=== PATIENT | female | born 1990 | race Caucasian/White ===

== ENCOUNTER 2019-12-27 08:10 | Emergency (ER) | payer OTHER ==
[2019-12-27 08:15] VITALS: BP 134/72; PULSE 107; RESP 18; TEMP 99.4
--- NOTE | 2019-12-27 08:48 | ED ---
General Adult HPI - General Chief complaint: Skin/Abscess/Foreign Body Stated complaint: Facial Swelling Time Seen by Provider: 12/27/19 08:20 Source: patient, RN notes reviewed, old records reviewed Mode of arrival: ambulatory Limitations: no limitations - History of Present Illness Initial comments: 29-year-old female presenting for left-sided facial swelling which is been present for the past 24 hours. She had taken Motrin and Benadryl with approximately 50% reduction in swelling. She has poor dentition but denies any tooth pain. She has had a low-grade fever as well. She does report some mild pain in the left cheek. No pain with chewing. No difficulty swallowing. No cough or dyspnea. No abdominal pain nausea vomiting. - Related Data Previous Rx's Medication Instructions Recorded Amoxic-Pot Clav 875-125Mg 1 tab PO Q12HR 10 Days #20 tab 12/27/19 [Augmentin 875-125] Allergies Allergy/AdvReac Type Severity Reaction Status Date / Time No Known Allergies Allergy Verified 12/27/19 08:15 Review of Systems ROS Statement: Those systems with pertinent positive or pertinent negative responses have been documented in the HPI. ROS Other: All systems not noted in ROS Statement are negative. Past Medical History Past Medical History: No Reported History Additional Past Medical History / Comment(s): 3 vaginal deliveries. no complications History of Any Multi-Drug Resistant Organisms: None Reported Past Surgical History: No Surgical Hx Reported Past Anesthesia/Blood Transfusion Reactions: No Reported Reaction Past Psychological History: ADD/ADHD, Depression Smoking Status: Current every day smoker Past Alcohol Use History: Occasional Past Drug Use History: None Reported - Past Family History Father Family Medical History: Diabetes Mellitus, Hypertension General Exam Limitations: no limitations General appearance: alert, in no apparent distress Head exam: Present: atraumatic, normocephalic Eye exam: Present: normal appearance, PERRL ENT exam: Present: mucous membranes moist, other (Dentition throughout, fractured left lower molar multiple dental caries. No tenderness to percussion. No drainable abscess. Patient has swelling and mild tenderness of the soft tissue of the left cheek.) Neck exam: Present: normal inspection. Absent: tenderness, meningismus Respiratory exam: Present: normal lung sounds bilaterally. Absent: respiratory distress, wheezes Cardiovascular Exam: Present: regular rate, normal rhythm GI/Abdominal exam: Present: soft. Absent: distended, tenderness Course Vital Signs 12/27/19 08:13 Temperature 99.4 F Pulse Rate 107 H Respiratory 18 Rate Blood Pressure 134/72 O2 Sat by Pulse 100 Oximetry Medical Decision Making - Medical Decision Making 29-year-old female with left-sided facial swelling, suspect dental abscess as the cause of this inflammation. Patient prescribed Augmentin. She will continue Motrin for inflammation and pain. She will follow-up with her dentist. Disposition Clinical Impression: Dental abscess, Facial swelling Disposition: HOME SELF-CARE Condition: Good Instructions (If sedation given, give patient instructions): Dental Abscess (ED) Additional Instructions: Please follow up with your dentist. please return with worsening or changing symptoms. Prescriptions: Amoxic-Pot Clav 875-125Mg [Augmentin 875-125] 1 tab PO Q12HR 10 Days #20 tab Is patient prescribed a controlled substance at d/c from ED?: No Referrals: None,Stated [Primary Care Provider] - 1-2 days Tad Majano [STAFF PHYSICIAN] - 1-2 days Time of Disposition: 08:46
== END 2019-12-27 09:00 | disposition home or self-care (01) ==
LOC: EC 08:10
DX: K04.7 Periapical abscess without sinus (principal); R22.0 Localized swelling, mass and lump, head; K02.9 Dental caries, unspecified; S02.5XXA Fracture of tooth (traumatic), initial encounter for closed fracture; F17.200 Nicotine dependence, unspecified, uncomplicated; X58.XXXA Exposure to other specified factors, initial encounter
CPT/HCPCS: 81025; 99284

== ENCOUNTER 2022-01-03 21:47 | Emergency (ER) | payer OTHER ==
[2022-01-03 21:58] VITALS: RESP 16; TEMP 98.5
--- NOTE | 2022-01-03 22:27 | XR ---
EXAMINATION TYPE: XR foot limited RT DATE OF EXAM: 01/03/2022 COMPARISON: NONE HISTORY: Foot pain TECHNIQUE: 3 view FINDINGS: Metatarsals appear intact. I see no fracture or dislocation. There are no erosions. Hindfoo t appears intact. Joint spaces are fairly normal. IMPRESSION: Negative right foot exam.
--- NOTE | 2022-01-03 22:33 | XR ---
EXAMINATION TYPE: XR ankle complete RT DATE OF EXAM: 01/03/2022 COMPARISON: NONE HISTORY: Pain TECHNIQUE: 3 views FINDINGS: There is soft tissue swelling over the lateral malleolus. Ankle mortise is anatomic. IMPRESSION: Lateral soft tissue swelling. No fracture seen.
--- NOTE | 2022-01-03 23:11 | ED ---
General Adult HPI - General Chief complaint: Extremity Injury, Lower Stated complaint: RIGHT ANKLE PAIN Source: patient Mode of arrival: wheelchair Limitations: no limitations - History of Present Illness Initial comments: 31-year-old female presents emergency department for right ankle pain. States that she twisted her right ankle stepping down a concrete step from a deck. S uffered an inversion injury and landed on top of a rock. Patient has been unable to weight-bear. Denies any numbness or tingling in her toes. No knee pain. Denies since taking medications at home prior to coming into the emergency room. No other alleviating, precipitating mopping factors - Related Data Previous Rx's Medication Instructions Recorded Amoxic-Pot Clav 875-125Mg 1 tab PO Q12HR 10 Days #20 tab 12/27/19 [Augmentin 875-125] Allergies Allergy/AdvReac Type Severity Reaction Status Date / Time No Known Allergies Allergy Verified 01/03/22 21:58 Review of Systems ROS Statement: Those systems with pertinent positive or pertinent negative responses have been documented in the HPI. ROS Other: All systems not noted in ROS Statement are negative. Past Medical History Past Medical History: No Reported History Additional Past Medical History / Comment(s): 3 vaginal deliveries. no complications History of Any Multi-Drug Resistant Organisms: None Reported Past Surgical History: No Surgical Hx Reported Past Anesthesia/Blood Transfusion Reactions: No Reported Reaction Past Psychological History: ADD/ADHD, Depression Smoking Status: Vaper Past Alcohol Use History: None Reported Past Drug Use History: None Reported - Past Family History Father Family Medical History: Diabetes Mellitus, Hypertension General Exam Limitations: no limitations General appearance: alert, in no apparent distress Head exam: Present: atraumatic, normocephalic, normal inspection Extremities exam: Present: tenderness (right lateral ankle. associated swelling. intact ROM. 2+ DP and PT pulses) Skin exam: Present: warm, dry, intact, normal color. Absent: rash Course Vital Signs 01/03/22 01/03/22 21:56 23:15 Temperature 98.5 F Pulse Rate 113 H 84 Respiratory 16 16 Rate Blood Pressure 130/76 139/82 O2 Sat by Pulse 100 98 Oximetry Medical Decision Making - Medical Decision Making Upon arrival patient was placed into room 32. Thorough history and physical exam was performed. X-rays of the patient's right ankle and foot are performed which demonstrates no fracture. She is placed in an Aircast and given a set of crutches. Patient to rest, ice and elevate. Follow-up with her doctor in 7-10 days and have repeat imaging if pain persists. Patient understood and was discharged home in stable condition Disposition Clinical Impression: Right ankle pain Disposition: HOME SELF-CARE Condition: Stable Instructions (If sedation given, give patient instructions): Ankle Sprain (ED) Additional Instructions: Rest, ice and elevate your extremity. Wear the aircast. Ambulate as tolerated. Repeat xrays in 7-10 days if your pain persists. Return to ED for any new or worsening symptoms. Is patient prescribed a controlled substance at d/c from ED?: No Referrals: Jaycee Huang MD [Primary Care Provider] - 1-2 days Time of Disposition: 23:10
[2022-01-03 23:22] VITALS: BP 139/82; PULSE 84
== END 2022-01-03 23:31 | disposition home or self-care (01) ==
LOC: EC 21:47
DX: M25.571 Pain in right ankle and joints of right foot (principal); F17.209 Nicotine dependence, unspecified, with unspecified nicotine-induced disorders; X50.1XXA Overexertion from prolonged static or awkward postures, initial encounter
CPT/HCPCS: 99283

== ENCOUNTER 2022-01-13 14:07 | Emergency (ER) | payer OTHER ==
[2022-01-13 14:17] VITALS: RESP 20; TEMP 97.5
--- NOTE | 2022-01-13 15:34 | ED ---
Lower Extremity Injury HPI - General Chief Complaint: Extremity Injury, Lower Stated Complaint: RT ANKLE PAIN Time Seen by Provider: 01/13/22 14:56 Source: patient Mode of arrival: ambulatory Limitations: no limitations - History of Present Illness Initial Comments: Patient is a 31-year-old female presenting with chief complaint of right ankle pain. Patient was seen here on 01/03 after an injury, was found to have no fracture, and was instructed to follow-up with orthopedics. Patient states that she has had difficulty getting in with an orthopedist. Patient was seen in urgent care this week and had repeat x-rays performed, this confirmed that there is no fracture. Patient is concerned due to increased pain, swelling, bruising of the ankle. She denies any numbness, tingling, weakness, discoloration, pallor, cold extremity. - Related Data Previous Rx's Medication Instructions Recorded Amoxic-Pot Clav 875-125Mg 1 tab PO Q12HR 10 Days #20 tab 12/27/19 [Augmentin 875-125] Allergies Allergy/AdvReac Type Severity Reaction Status Date / Time No Known Allergies Allergy Verified 01/13/22 14:17 Review of Systems ROS Statement: Those systems with pertinent positive or pertinent negative responses have been documented in the HPI. ROS Other: All systems not noted in ROS Statement are negative. Past Medical History Past Medical History: No Reported History Additional Past Medical History / Comment(s): 3 vaginal deliveries. no complications History of Any Multi-Drug Resistant Organisms: None Reported Past Surgical History: No Surgical Hx Reported Past Anesthesia/Blood Transfusion Reactions: No Reported Reaction Past Psychological History: ADD/ADHD, Depression Smoking Status: Vaper Past Alcohol Use History: None Reported Past Drug Use History: None Reported - Past Family History Father Family Medical History: Diabetes Mellitus, Hypertension General Exam Limitations: no limitations General appearance: alert, in no apparent distress Head exam: Present: atraumatic, normocephalic, normal inspection Eye exam: Present: normal appearance, EOMI. Absent: scleral icterus, periorbital swelling Right Ankle exam: Present: tenderness, swelling, ecchymosis. Absent: full ROM, crepitus Foot/Toe exam: Present: full ROM, tenderness, swelling, ecchymosis Neurological exam: Present: alert, oriented X3, CN II-XII intact Psychiatric exam: Present: normal affect, normal mood Skin exam: Present: warm, dry, intact, normal color. Absent: rash Course Vital Signs 01/13/22 01/13/22 14:13 16:13 Temperature 97.5 F L Pulse Rate 108 H 84 Respiratory 20 20 Rate Blood Pressure 134/80 132/70 O2 Sat by Pulse 99 99 Oximetry Medical Decision Making - Medical Decision Making Patient is a 31-year-old female presenting for evaluation of continued right ankle swelling, pain, bruising. Patient was seen here on 01/03 and found to have no fracture and instructed to follow up with orthopedics. Patient was seen in urgent care this week and had repeat x-rays performed confirming there is no fracture. Patient states she's had difficulty getting in with orthopedics. He is using her brace, and taking Motrin and Tylenol, resting, icing, elevating. On examination there is tenderness to palpation along the lateral portion of the foot and ankle. There is notable swelling and bruising. Patient has been using crutches and ankle stirrup brace. I placed the patient in an ankle stirrup splint, and instructed her to follow up with orthopedics. I educated her on supportive treatment. Report back to ER if any new or worsening symptoms. Discussed return parameters answered all questions. Patient conveyed verbal understanding and agreed to the plan. My attending is Dr. Chew Disposition Clinical Impression: Ankle sprain Disposition: HOME SELF-CARE Condition: Good Instructions (If sedation given, give patient instructions): Ankle Sprain (ED) Additional Instructions: Follow up with orthopedics. Report back to ER if any new or worsening symptoms. Take Motrin and Tylenol as needed for pain control. Rest, ice, compress, elevate above the level of the heart for symptomatic management. Is patient prescribed a controlled substance at d/c from ED?: No Referrals: Jaycee Huang MD [Primary Care Provider] - 1-2 days Jerardo Geronimo PAC [PHYSICIAN CAREER DEVELOPMENT COORDINATOR] - 1-2 days Time of Disposition: 15:33
[2022-01-13 16:14] VITALS: BP 132/70; PULSE 84
== END 2022-01-13 16:14 | disposition home or self-care (01) ==
LOC: EC 14:07
DX: S93.401A Sprain of unspecified ligament of right ankle, initial encounter (principal); F17.290 Nicotine dependence, other tobacco product, uncomplicated; X58.XXXA Exposure to other specified factors, initial encounter
CPT/HCPCS: 99283

== ENCOUNTER → 2022-02-09 | Outpatient (CLI) | payer OTHER ==
--- NOTE | 2022-02-10 04:55 | MR ---
EXAMINATION TYPE: MR ankle RT wo con DATE OF EXAM: 02/09/2022 COMPARISON: None HISTORY: Right foot and ankle pain due to rolling ankle 1 month ago. Multiplanar multiecho imaging of the right ankle performed with no contrast. There is intact Achilles tendon. Calcaneus is intact. The medial and lateral flexor tendons of the an kle are intact. Ankle mortise is anatomic. There is increased signal in the medial malleolus and the medial aspect of the talus on the T2 images and consistent with bone bruise. No fracture line seen. T here is mild subcutaneous edema on the dorsum of the foot. There is small ankle joint effusion. IMPRESSION: There is evidence of bone bruise involving the medial talus and the medial malleolus of the ankle. Sm all ankle joint effusion. No fracture seen. No evidence of tendon or ligament tear.
--- NOTE | 2022-02-10 05:03 | MR ---
EXAMINATION TYPE: MR foot RT wo con DATE OF EXAM: 02/09/2022 COMPARISON: None HISTORY: Right foot and ankle pain due to rolling ankle 1 month ago. Multiplanar multiecho imaging of the right foot without contrast. There is subcutaneous edema on the dorsum of the foot and anterior ankle. There is some mild edema in the soft tissues in the plantar aspect of the foot. The Achilles tendon is intact. Medial and latera l flexor tendons are intact. There are some diffuse edema in the medial talus and medial malleolus of the ankle. No fracture seen. Joint spaces of the foot are fairly well maintained. No subluxation. IMPRESSION: Subcutaneous edema. Mild edema in the soft tissues on the plantar aspect of the forefoot. There is ev idence of bone bruise involving the medial malleolus of the ankle and the medial talus.
== END | disposition home or self-care (01) ==
LOC: RADMRIMAIN 07:39
PROVIDERS: ATTEND Student in an Organized Health Care Education/Training Program
DX: S90.01XA Contusion of right ankle, initial encounter (principal); M25.471 Effusion, right ankle; X58.XXXA Exposure to other specified factors, initial encounter

== ENCOUNTER → 2023-09-27 | Outpatient (CLI) | payer OTHER ==
--- NOTE | 2023-09-27 12:20 | US ---
EXAMINATION TYPE: US transvaginal DATE OF EXAM: 09/27/2023 COMPARISON: NONE CLINICAL INDICATION: Female, 33 years old with history of N91.2 AMENORRHEA; Amenorrhea TECHNIQUE: Transvaginal (TV). Date of LMP: 07/27/23 EXAM MEASUREMENTS: Uterus: 8.8 x 4.8 x 6.7 cm Endometrial Stripe: 0.9 cm Right Ovary: 4.2 x 3.6 x 2.1 cm Left Ovary: 4.1 x 2.2 x 2.1 cm 1. Uterus: Anteverted wnl 2. Endometrium: wnl 3. Right Ovary: dominant follicle = 1.9cm 4. Left Ovary: follicles noted 5. Bilateral Adnexa: prominent vascularity 6. Posterior cul-de-sac: small amount of fluid IMPRESSION: Bilateral ovarian follicles. Small amount of free fluid.
== END | disposition home or self-care (01) ==
LOC: RADUSWWP 08:07
PROVIDERS: ATTEND Family Medicine
DX: N83.02 Follicular cyst of left ovary (principal); N83.01 Follicular cyst of right ovary; N91.2 Amenorrhea, unspecified
CPT/HCPCS: 76830

== ENCOUNTER → 2024-01-09 | Outpatient (CLI) | payer OTHER ==
--- NOTE | 2024-01-09 18:17 | US ---
EXAMINATION TYPE: US thyroid st tissue head/neck DATE OF EXAM: 01/09/2024 COMPARISON: NONE CLINICAL INDICATION: Female, 33 years old with history of E05.90 THYROTOXICOSIS, UNSP WITHOUT THYROTO XIC CRI; GLAND SIZE: Right Lobe: 5.2 x 1.4 x1.9 cm Overall Parenchyma: homogeneous Left Lobe: 4.9 x 1.6 x 1.6 cm Overall Parenchyma: homogeneous Isthmus Thickness: 0.23 cm NODULES RIGHT: # of nodules measured on right: 0 LEFT: # of nodules measured on left: 0 ISTHMUS: # of nodules measured in the isthmus: 0 IMPRESSION: Unremarkable thyroid gland without discrete nodule.
== END | disposition home or self-care (01) ==
LOC: RADUSWWP 15:13
PROVIDERS: ATTEND Family Medicine
DX: E05.90 Thyrotoxicosis, unspecified without thyrotoxic crisis or storm (principal)
CPT/HCPCS: 76536

== ENCOUNTER 2024-09-19 09:31 | Emergency (ER) | payer OTHER ==
[2024-09-19 09:37] VITALS: BP 135/65; PULSE 90; RESP 17; TEMP 98.4
--- NOTE | 2024-09-19 09:44 | ED ---
Headache HPI - General Chief Complaint: Headache Stated Complaint: Migraine Time Seen by Provider: 09/19/24 09:41 Source: patient, RN notes reviewed Mode of arrival: ambulatory Limitations: no limitations - History of Present Illness Initial Comments: This is a 34-year-old female with no reported medical conditions presenting to the emergency department via EMS for complaint of a headache. Patient states that symptoms started yesterday evening at 1500 where she took Motrin with minimal relief in symptoms. Patient endorses associated dizziness described as a room spinning sensation in addition to intermittent black vision in bilateral eyes and associated nausea. She denies neck stiffness, cough, congestion, rhinorrhea, fevers, chills, abdominal pain. Denies history of migraine headaches. States that she took a 500 mg Tylenol today with minimal relief in symptoms. - Related Data Home Medications Medication Instructions Recorded Confirmed Beef Organs(Unknown Dose) 1 tab PO DAILY 09/19/24 09/19/24 Magnesium(Unknown Dose) 1 tab PO DAILY 09/19/24 09/19/24 Vitamin C W/Zinc(Unknown Dose) 1 tab PO DAILY 09/19/24 09/19/24 Vitamin D3/Vitamin K2 (Mk4) 1 tab PO DAILY 09/19/24 09/19/24 [Vitamin K2 Plus D3 Tablet] Previous Rx's Medication Instructions Recorded Ketorolac [Toradol] 10 mg PO Q8HR #15 tab 09/19/24 Allergies Allergy/AdvReac Type Severity Reaction Status Date / Time No Known Allergies Allergy Verified 09/19/24 10:16 Review of Systems ROS Statement: Those systems with pertinent positive or pertinent negative responses have been documented in the HPI. ROS Other: All systems not noted in ROS Statement are negative. Past Medical History Past Medical History: No Reported History Additional Past Medical History / Comment(s): 3 vaginal deliveries. no complications History of Any Multi-Drug Resistant Organisms: None Reported Past Surgical History: No Surgical Hx Reported Past Anesthesia/Blood Transfusion Reactions: No Reported Reaction Past Psychological History: ADD/ADHD, Depression Smoking Status: Vaper Past Alcohol Use History: None Reported Past Drug Use History: None Reported - Past Family History Father Family Medical History: Diabetes Mellitus, Hypertension General Exam Limitations: no limitations General appearance: alert, in no apparent distress Eye exam: Present: normal appearance, PERRL, EOMI. Absent: scleral icterus, conjunctival injection, periorbital swelling Neck exam: Present: normal inspection. Absent: tenderness, meningismus, lymphadenopathy Respiratory exam: Present: normal lung sounds bilaterally. Absent: respiratory distress, wheezes, rales, rhonchi, stridor Cardiovascular Exam: Present: regular rate, normal rhythm, normal heart sounds. Absent: systolic murmur, diastolic murmur, rubs, gallop, clicks GI/Abdominal exam: Present: soft, normal bowel sounds. Absent: distended, tenderness, guarding, rebound, rigid Extremities exam: Present: normal inspection, full ROM, normal capillary refill. Absent: tenderness, pedal edema, joint swelling, calf tenderness Neurological exam: Present: alert, oriented X3, CN II-XII intact Course Vital Signs 09/19/24 09:32 Temperature 98.4 F Pulse Rate 90 Respiratory 17 Rate Blood Pressure 135/65 O2 Sat by Pulse 98 Oximetry Medical Decision Making - Medical Decision Making Was pt. sent in by a medical professional or institution (, PA, BULLET SLUG CASTING MACHINE OPERATOR, urgent care, hospital, or correction...) When possible be specific @ -No Did you speak to anyone other than the patient for history (EMS, parent, family, police, friend...)? What history was obtained from this source @ -No Did you review nursing and triage notes (agree or disagree)? Why? @ -I reviewed and agree with nursing and triage notes Were old charts reviewed (outside hosp., previous admission, EMS record, old EKG, old radiological studies, urgent care reports/EKG's, correction records)? Report findings @ -No old charts were reviewed Differential Diagnosis (chest pain, altered mental status, abdominal pain women, abdominal pain men, vaginal bleeding, weakness, fever, dyspnea, syncope, headache, dizziness, GI bleed, back pain, seizure, CVA, palpatations, mental health, musculoskeletal)? @ -Differential Headache: Migraine, tension, cluster, carbon monoxide, central venous thrombosis, pension karma temporal arteritis, acute closure glaucoma, intercranial hemorrhage, mastoiditis, sinusitis, head injury, this is not meant to be an all-inclusive list. EKG interpreted by me (3pts min.). @ -None X-rays interpreted by me (1pt min.). @ -None done CT interpreted by me (1pt min.). @ -CT imaging of the brain without contrast no acute acute process. U/S interpreted by me (1pt. min.). @ -None done What testing was considered but not performed or refused? (CT, X-rays, U/S, labs)? Why? @ -None What meds were considered but not given or refused? Why? @ -None Did you discuss the management of the patient with other professionals (janet pederson i.e. , PA, BULLET SLUG CASTING MACHINE OPERATOR, lab, RT, psych nurse, psychotherapist social worker, juvenile corrections officer, teacher, forest fire management officer, patient case manager)? Give summary @ -No Was smoking cessation discussed for >3mins.? @ -No Was critical care preformed (if so, how long)? @ -No Were there social determinants of health that impacted care today? How? (Homelessness, low income, unemployed, alcoholism, drug addiction, transportation, low edu. Level, literacy, decrease access to med. care, residential, rehab)? @ -No Was there de-escalation of care discussed even if they declined (Discuss DNR or withdrawal of care, Hospice)? DNR status @ -No What co-morbidities impacted this encounter? (DM, HTN, Smoking, COPD, CAD, Cancer, CVA, ARF, Chemo, Hep., AIDS, mental health diagnosis, sleep apnea, morbid obesity)? @ -None Was patient admitted / discharged? Hospital course, mention meds given and route, prescriptions, significant lab abnormalities, going to OR and other pertinent info. @ -Discharge. 34-year-old female presenting with headache via EMS. Overall patient is well-appearing. Vitals are stable. Neurological examination with no acute deficits. She is provided with migraine cocktail including fluids, Benadryl, Toradol and Reglan. On reevaluation patient states that symptoms have completely resolved. Laboratory testing is unremarkable. Viral testing is negative. Urinalysis no signs of infection, hCG undetected. Case discussed with Dr. Woodruff Undiagnosed new problem with uncertain prognosis? @ -No Drug Therapy requiring intensive monitoring for toxicity (Heparin, Nitro, Insulin, Cardizem)? @ -No Were any procedures done? @ -No Diagnosis/symptom? @ -Headache Acute, or Chronic, or Acute on Chronic? @ -Acute Uncomplicated (without systemic symptoms) or Complicated (systemic symptoms)? @ -Uncomplicated Side effects of treatment? @ -No Exacerbation, Progression, or Severe Exacerbation? @ -No Poses a threat to life or bodily function? How? (Chest pain, [place], [place], pneumonia, PE, COPD, DKA, ARF, appy, cholecystitis, CVA, Diverticulitis, Homicidal, Suicidal, threat to staff... and all critical care pts) @ -No - Lab Data Result diagrams: 09/19/24 09:55 09/19/24 09:55 Lab Results 09/19/24 09/19/24 09/19/24 Range/Units 09:55 09:55 09:55 WBC 6.6 (3.8-10.6) k/uL RBC 4.28 (3.80-5.40) m/uL Hgb 14.0 (11.4-16.0) gm/dL Hct 40.5 (34.0-46.0) % MCV 94.8 (80.0-100.0) fL MCH 32.8 (25.0-35.0) pg MCHC 34.6 (31.0-37.0) g/dL RDW 12.0 (11.5-15.5) % Plt Count 209 (150-450) k/uL MPV 8.1 Neutrophils % 65 % Lymphocytes % 29 % Monocytes % 4 % Eosinophils % 1 % Basophils % 1 % Neutrophils # 4.2 (1.3-7.7) k/uL Lymphocytes # 1.9 (1.0-4.8) k/uL Monocytes # 0.3 (0-1.0) k/uL Eosinophils # 0.1 (0-0.7) k/uL Basophils # 0.0 (0-0.2) k/uL Sodium 138 (137-145) mmol/L Potassium 4.2 (3.5-5.1) mmol/L Chloride 106 (98-107) mmol/L Carbon Dioxide 25 (22-30) mmol/L Anion Gap 7 mmol/L BUN 19 H (7-17) mg/dL Creatinine 0.65 (0.52-1.04) mg/dL Est GFR (CKD-EPI)AfAm >90 (>60 ml/min/1.73 sqM) Est GFR (CKD-EPI)NonAf >90 (>60 ml/min/1.73 sqM) Glucose 97 (74-99) mg/dL Calcium 9.2 (8.4-10.2) mg/dL Magnesium 2.0 (1.6-2.3) mg/dL Total Bilirubin 0.8 (0.2-1.3) mg/dL AST 16 (14-36) U/L ALT 14 (4-34) U/L Alkaline Phosphatase 85 (38-126) U/L Total Protein 7.3 (6.3-8.2) g/dL Albumin 4.4 (3.5-5.0) g/dL Urine Color Urine Appearance (Clear) Urine pH (5.0-8.0) Ur Specific [place] (1.001-1.035) Urine Protein (Negative) Urine Glucose (UA) (Negative) Urine Ketones (Negative) Urine Blood (Negative) Urine Nitrite (Negative) Urine Bilirubin (Negative) Urine Urobilinogen (<2.0) mg/dL Ur Leukocyte Esterase (Negative) Urine RBC (0-5) /hpf Urine WBC (0-5) /hpf Ur Squamous Epith Cells (0-4) /hpf Hyaline Casts (0-2) /lpf Urine Mucus (None) /hpf Urine HCG, Qual (Not Detectd) Influenza Type A (PCR) Not Detected (Not Detectd) Influenza Type B (PCR) Not Detected (Not Detectd) RSV (PCR) Not Detected (Not Detectd) SARS-CoV-2 (PCR) Not Detected (Not Detectd) 09/19/24 09/19/24 Range/Units 11:15 11:15 WBC (3.8-10.6) k/uL RBC (3.80-5.40) m/uL Hgb (11.4-16.0) gm/dL Hct (34.0-46.0) % MCV (80.0-100.0) fL MCH (25.0-35.0) pg MCHC (31.0-37.0) g/dL RDW (11.5-15.5) % Plt Count (150-450) k/uL MPV Neutrophils % % Lymphocytes % % Monocytes % % Eosinophils % % Basophils % % Neutrophils # (1.3-7.7) k/uL Lymphocytes # (1.0-4.8) k/uL Monocytes # (0-1.0) k/uL Eosinophils # (0-0.7) k/uL Basophils # (0-0.2) k/uL Sodium (137-145) mmol/L Potassium (3.5-5.1) mmol/L Chloride (98-107) mmol/L Carbon Dioxide (22-30) mmol/L Anion Gap mmol/L BUN (7-17) mg/dL Creatinine (0.52-1.04) mg/dL Est GFR (CKD-EPI)AfAm (>60 ml/min/1.73 sqM) Est GFR (CKD-EPI)NonAf (>60 ml/min/1.73 sqM) Glucose (74-99) mg/dL Calcium (8.4-10.2) mg/dL Magnesium (1.6-2.3) mg/dL Total Bilirubin (0.2-1.3) mg/dL AST (14-36) U/L ALT (4-34) U/L Alkaline Phosphatase (38-126) U/L Total Protein (6.3-8.2) g/dL Albumin (3.5-5.0) g/dL Urine Color Yellow Urine Appearance Cloudy H (Clear) Urine pH 6.5 (5.0-8.0) Ur Specific [place] 1.029 (1.001-1.035) Urine Protein Trace H (Negative) Urine Glucose (UA) Negative (Negative) Urine Ketones Negative (Negative) Urine Blood Negative (Negative) Urine Nitrite Negative (Negative) Urine Bilirubin Negative (Negative) Urine Urobilinogen 4.0 (<2.0) mg/dL Ur Leukocyte Esterase Negative (Negative) Urine RBC 3 (0-5) /hpf Urine WBC 1 (0-5) /hpf Ur Squamous Epith Cells 11 H (0-4) /hpf Hyaline Casts 1 (0-2) /lpf Urine Mucus Rare H (None) /hpf Urine HCG, Qual Not Detected (Not Detectd) Influenza Type A (PCR) (Not Detectd) Influenza Type B (PCR) (Not Detectd) RSV (PCR) (Not Detectd) SARS-CoV-2 (PCR) (Not Detectd) Disposition Clinical Impression: Headache Disposition: HOME SELF-CARE Condition: Good Instructions (If sedation given, give patient instructions): Acute Headache (ED) Additional Instructions: Please return to the Emergency Department if symptoms worsen or any other concerns. Prescriptions: Ketorolac [Toradol] 10 mg PO Q8HR #15 tab Is patient prescribed a controlled substance at d/c from ED?: No Referrals: Ericka Rob MD [Primary Care Provider] - 1-2 days Time of Disposition: 12:15
[2024-09-19] MEDS: SODIUM CHLORIDE 0.9% 1,000 ML IV STA (10:24)
[2024-09-19] MEDS: diphenhydrAMINE 50 MG/ML 1 ML VIAL IVP STA (10:27)
[2024-09-19] MEDS: METOCLOPRAMIDE 5 MG/ML 2 ML VIAL IVP STA (10:27)
[2024-09-19] MEDS: KETOROLAC 15 MG/ML 1 ML VIAL IVP STA (10:27)
[2024-09-19 10:36] LABS: ALT 14 U/L (4-34); AST 16 U/L (14-36); African American GFR (CKD) >90 (>60 ml/min/1.73 sqM); Albumin 4.4 g/dL (3.5-5.0); Alkaline Phosphatase 85 U/L (38-126); Anion Gap 7 mmol/L; Blood Urea Nitrogen 19 mg/dL (7-17); Calcium 9.2 mg/dL (8.4-10.2); Carbon Dioxide 25 mmol/L (22-30); Chloride 106 mmol/L (98-107); Glucose 97 mg/dL (74-99); Non-African American GFR(CKD) >90 (>60 ml/min/1.73 sqM); Potassium 4.2 mmol/L (3.5-5.1); Sodium 138 mmol/L (137-145); Total Bilirubin 0.8 mg/dL (0.2-1.3); Total Protein 7.3 g/dL (6.3-8.2)
[2024-09-19 10:47] LABS: Basophils % (A) 1 %; Eosinophils # (A) 0.1 k/uL (0-0.7); Eosinophils % (A) 1 %; HCT 40.5 % (34.0-46.0); Lymphocytes # (A) 1.9 k/uL (1.0-4.8); Lymphocytes % (A) 29 %; MCH 32.8 pg (25.0-35.0); MCHC 34.6 g/dL (31.0-37.0); MCV 94.8 fL (80.0-100.0); Mean Platelet Volume 8.1; Monocytes # (A) 0.3 k/uL (0-1.0); Monocytes % (A) 4 %; Neutrophils # (A) 4.2 k/uL (1.3-7.7); Neutrophils % (A) 65 %; Platelet Count 209 k/uL (150-450); RBC 4.28 m/uL (3.80-5.40); WBC 6.6 k/uL (3.8-10.6)
[2024-09-19 11:01] LABS: Influenza A Not Detected (Not Detectd); Influenza B Not Detected (Not Detectd); RSV Not Detected (Not Detectd)
[2024-09-19 11:48] LABS: Appearance,Urine Cloudy (Clear); Bilirubin,Urine Negative (Negative); Blood,Urine Negative (Negative); Color,Urine Yellow; Glucose,Urine (UA) Negative (Negative); Hyaline Casts,Urine 1 /lpf (0-2); Ketones,Urine Negative (Negative); Leukocyte Esterase,Urine Negative (Negative); Mucus,Urine Rare /hpf; Nitrite,Urine Negative (Negative); PH, Urine 6.5 (5.0-8.0); Protein,Urine Trace (Negative); RBC,Urine 3 /hpf (0-5); Specific Gravity,Urine 1.029 (1.001-1.035); Squamous Epithelial Cell,Urine 11 /hpf (0-4); WBC,Urine 1 /hpf (0-5)
--- NOTE | 2024-09-19 12:10 | CT ---
EXAMINATION TYPE: CT brain wo con DATE OF EXAM: 09/19/2024 COMPARISON: NONE CLINICAL INDICATION: Female, 34 years old with history of headache, dizziness, BALLESTEROS, Dizzy., TECHNIQUE: CT scan of the head is performed without contrast. CT DLP: 1044.4 mGycm. Automated Exposure Control for Dose Reduction was Utilized. FINDINGS: There is no acute intracranial hemorrhage, mass effect, or midline shift identified. The ventricles and sulci are within normal limits in size. Glover-white matter differentiation is maintai jered. No suspicious opacification of the mastoid air cells. The globes are intact and the visualized s inuses are clear. IMPRESSION: No acute intracranial hemorrhage, mass effect, or midline shift is seen. [facility], , 09/19/2024 12:07 PM
== END 2024-09-19 12:49 | disposition home or self-care (01) ==
LOC: EC 09:31
DX: G43.909 Migraine, unspecified, not intractable, without status migrainosus (principal); F17.290 Nicotine dependence, other tobacco product, uncomplicated; Z11.52 Encounter for screening for COVID-19
CPT/HCPCS: 36415; 80053; 83735; 85025; 81001; 81025; 87636; 70450; 99284; 96374; 96375 ×2; 96361; J1200; J2765; J1885